=== PATIENT | female | born 1935 | race Caucasian/White ===

== ENCOUNTER 2020-05-17 12:38 | Emergency (ER) | payer MEDICARE, BC ==
[2020-05-17] MEDS ORDERED: Dexamethasone 10 MG/ML VIAL ONE (14:27)
== END 2020-05-17 14:31 | disposition home or self-care (01) ==
LOC: CSHERS 12:38
DX: J02.9 Acute pharyngitis, unspecified (principal); I10 Essential (primary) hypertension; E11.9 Type 2 diabetes mellitus without complications
CPT/HCPCS: 93005; J1100

== ENCOUNTER 2023-04-21 17:04 | Outpatient (CLI) | payer MEDICARE | END 2023-04-21 17:05 | disposition home or self-care (01) | LOC: CSHRAD 17:04 | PROVIDERS: ATTEND Family Medicine | DX: W19.XXXA Unspecified fall, initial encounter (principal); J90 Pleural effusion, not elsewhere classified; R91.8 Other nonspecific abnormal finding of lung field; M25.78 Osteophyte, vertebrae; M47.816 Spondylosis without myelopathy or radiculopathy, lumbar region; M51.86 Other intervertebral disc disorders, lumbar region | CPT/HCPCS: 71046; 72100 ==